=== PATIENT | female | born 1975 | race Caucasian/White ===

== ENCOUNTER 2016-12-30 06:45 | Day surgery (SDC) | payer OTHER ==
[~2016-12-30] VITALS: Ht 167.6 cm; Wt 133.8 kg
--- NOTE | ~2016-12-30 | S ---
[facility] [place] [address] SURGICAL PATH RPT PROCEDURE Name: JAEL BUTT Room #: [facility].#: [id number] Admission: 12/30/16 Date of : 77 Discharge: 12/30/16 Report #: [id number] Path Case #: [id number] PATHOLOGY REPORT COLLECTION DATE: 12/30/2016 RECEIVED DATE: 12/30/2016 SUBMITTING PHYS: Dr. Jorge L Guerrero OTHER PHYS: Dr. Anthony Graham SPECIMEN(S) RECEIVED: A.Gallbladder B.Contents of incarcerated ventral hernia * * * * * * * * * * * * FINAL DIAGNOSIS: A. Gallbladder, cholecystectomy: - Mild chronic cholecystitis. - Cholelithiasis. B. Incarcerated ventral hernia, repair: - Dense fibrovascular and fibroadipose connective tissue with congestion and reactive changes. (IUV:mgr; 01/03/2017) PATHOLOGIST: Paula Vance M.D. REPORT ELECTRONICALLY SIGNED BY: Paula Vance M.D. DATE/TIME: 01/03/2017 14:42 * * * * * * * * * * * * GROSS PATHOLOGY: A. Received in formalin labeled "Jael Butt, gallbladder," is a 7.0 x 2.8 x 2.3 cm, previously opened gallbladder with green sainz serosal surfaces. Opening the gallbladder reveals velvety and bile-stained mucosa and an average wall thickness of 0.1 cm. Multiple light brown, multifaceted calculi are present and no masses are noted grossly. [employer] sections from the body and fundus are submitted along with the proximal margin in cassette A1. B. Received in formalin labeled "Jael Butt, contents of incarcerated ventral hernia," is a piece of fibroadipose tissue measuring 3.7 x 2.6 x 2.1 cm. No nodules or lesions are identified. [employer] tissue is submitted in cassette B1. (KAH; 12/31/2016) CLINICAL HISTORY: Gallstones, ventral hernia [address] [address] SURGICAL PATH RPT PROCEDURE Name: JAEL BUTT Room #: [facility] M..#: [id number] Admission: 12/30/16 Date of : 77 Discharge: 12/30/16 Report #: [id number] Path Case #: [id number] INITIAL CPT CODE(S): A; 10325 B; 36369 Professional services performed by [facility] [address], [place] [address] Technical services performed by [facility] at [address] [place] [address], [facility] [address] [address]. [facility] [address] [place] [address] PHONE: [phone] DIRECTOR: Jordan Jamil M.D. * * * END OF REPORT * * *
[~2016-12-30 06:45] MED LIST: ALLEGRA ALLERG180 MG PO; ALLEGRA-D 24 H1 EACH; FLONASE 0.05%50 MCG; IBUPROFEN 200200 M1 PO; NEURONTIN300 MG PO; PERCOCET 5-3251 EACH PO; PERCOCET PO
[2016-12-30 09:20] VITALS: BP 153/93
[2016-12-30 09:44] LABS: HEMATOCRIT 38.5 % (37.0-47.0); MCHC 33.7 g/dL (28.0-37.0); MCV 91.9 fL (80.0-100.0); RBC 4.19 mil/uL (4.20-5.00); RDW 12.5 % (10.5-14.5); WBC 6.5 thou/uL (4.0-11.0)
[2016-12-30 13:01] VITALS: BP 153/93
== END 2016-12-30 14:18 | disposition home or self-care (01) ==
LOC: TBA 06:45 → OR 06:45
PROVIDERS: Surgery
DX: K80.10 Calculus of gallbladder with chronic cholecystitis without obstruction (principal); K43.6 Other and unspecified ventral hernia with obstruction, without gangrene; E66.01 Morbid (severe) obesity due to excess calories; D64.9 Anemia, unspecified
CPT/HCPCS: 50010; 50101; 50249; 50411; 50555; 50558; 50962; 51489; 51975; 52265; 53307; 54022; 54118; 55245; 55317; 56462; 56525; 56526; 56527; 62110; 62900; 70005